=== PATIENT | male | born 1985 | race African-American/Black ===

== ENCOUNTER 2020-03-16 19:59 | Emergency (ER) | payer OTHER ==
[~2020-03-16] VITALS: Ht 182.9 cm; Wt 88.6 kg
--- NOTE | 2020-03-16 21:22 | REPVR ---
PROCEDURE INFORMATION: Exam: XR Left Ankle Exam date and time: 03/16/2020 8:29 PM Age: 34 years old Clinical indication: Other: Fell/twisted TECHNIQUE: Imaging protocol: XR Left ankle. Views: 3 or more views. COMPARISON: No relevant prior studies available. FINDINGS: Bones/joints: There is no evidence of fracture. The ankle mortise appears in alignment. There is an os trigonum process from the posterior talus. Soft tissues: There is moderate soft tissue swelling over the lateral malleolus. IMPRESSION: 1. No evidence of fracture. 2. Moderate soft tissue swelling over the lateral malleolus. Electronically signed by: Fidel Plunkett On 03/16/2020 21:21:44 PM
[2020-03-16] MEDS ORDERED: MORPHINE 4 MG/ML 1ML VIAL/SYRINGE (J2270) IV ONE (21:30)
--- NOTE | 2020-03-16 22:39 | REPVR ---
PROCEDURE INFORMATION: Exam: XR Left Foot Complete Exam date and time: 03/16/2020 9:22 PM Age: 34 years old Clinical indication: Other: Trauma, 5th mt pain TECHNIQUE: Imaging protocol: XR Left foot. Views: 3 or more views. COMPARISON: CR Ankle, complete LEFT 03/16/2020 8:41 PM FINDINGS: Bones/joints: Normal. Soft tissues: Normal. IMPRESSION: No acute findings. Electronically signed by: Fidencio Demarco On 03/16/2020 22:38:43 PM
--- NOTE | 2020-03-16 22:39 | REPVR ---
PROCEDURE INFORMATION: Exam: XR Left Tibia and Fibula Exam date and time: 03/16/2020 9:22 PM Age: 34 years old Clinical indication: Other: Trauma TECHNIQUE: Imaging protocol: XR Left tibia and fibula. Views: 2 views. COMPARISON: No relevant prior studies available. FINDINGS: Bones/joints: Normal. Soft tissues: Normal. IMPRESSION: No acute findings. Electronically signed by: Fidencio Demarco On 03/16/2020 22:39:19 PM
[2020-03-16] MEDS ORDERED: IBUP-1022 PO (22:43)
[2020-03-16 23:00] VITALS: BP 145/79
== END 2020-03-16 23:08 | disposition home or self-care (01) ==
LOC: M ED 19:59 → EDBD 19:59 → M ED 23:08
DX: S93.402A Sprain of unspecified ligament of left ankle, initial encounter (principal); W01.0XXA Fall on same level from slipping, tripping and stumbling without subsequent striking against object, initial encounter; Y92.84 Military training ground as the place of occurrence of the external cause; Y99.1 Military activity
CPT/HCPCS: 73590; 73610; 73630; 96374; 99284; J2270

== ENCOUNTER → 2020-05-29 | Outpatient (REF) | payer OTHER ==
[~2020-05-29] MED LIST: IBUP-1022 PO
== END ==
LOC: M LAB REF 09:18
PROVIDERS: ATTEND Physician Assistant
DX: Z11.59 Encounter for screening for other viral diseases (principal)

== ENCOUNTER 2021-01-11 10:25 | Emergency (ER) | payer OTHER ==
[~2021-01-11] VITALS: Ht 182.9 cm; Wt 93.0 kg
[2021-01-11] MEDS ORDERED: ACET500T15 PO (11:05)
[2021-01-11] MEDS ORDERED: BENA25CA4 PO (11:05)
[2021-01-11] MEDS ORDERED: BACT800T5 PO (11:28)
[2021-01-11 11:33] VITALS: BP 144/82
== END 2021-01-11 11:43 | disposition home or self-care (01) ==
LOC: M ED 10:25
DX: S60.561A Insect bite (nonvenomous) of right hand, initial encounter (principal); W57.XXXA Bitten or stung by nonvenomous insect and other nonvenomous arthropods, initial encounter; Y92.9 Unspecified place or not applicable; Y93.9 Activity, unspecified; Y99.8 Other external cause status